=== PATIENT | female | born 1995 | race Two or more races ===

== ENCOUNTER 2016-12-24 13:18 | Inpatient (IN) | payer SELFPAY ==
[~2016-12-24] VITALS: Ht 160 cm; Wt 75.0 kg
[2016-12-24 15:22] LABS: BASOPHILS % (AUTO) 0.3 % (0.0-2.0); DIFF TOTAL % 100 %; EOSINOPHILS # (AUTO) 0.1 /CMM (0.0-0.7); EOSINOPHILS % (AUTO) 0.8 % (0.0-6.0); HEMATOCRIT 47 % (33-45); HEMOGLOBIN 15.3 g/dL (11.5-14.8); LYMPHOCYTES # (AUTO) 5.5 /CMM (0.8-4.8); LYMPHOCYTES % (AUTO) 61.5 % (20.0-44.0); MEAN CORPUSCULAR HEMOGLOBIN 31 PG (26.0-33.0); MEAN CORPUSCULAR HGB CONC 33 g/dl (31.0-36.0); MEAN CORPUSCULAR VOLUME 94 fL (82-100); MONOCYTES # (AUTO) 0.9 /CMM (0.1-1.30); MONOCYTES % (AUTO) 10.1 % (2.0-12.0); NEUTROPHILS # (AUTO) 2.5 /CMM (1.8-8.9); NEUTROPHILS % (AUTO) 27.3 % (43.0-81.0); RED BLOOD CELL COUNT(AUTO) 5.03 MIL/uL (4.0-5.2)
[2016-12-24 15:50] LABS: CALCIUM, SERUM 8.6 mg/dL (8.5-10.1); CREATININE 0.5 mg/dL (0.6-1.3); POTASSIUM 4.4 mmol/L (3.5-5.1)
[2016-12-24 15:56] LABS: ALBUMIN 3.2 g/dL (3.4-5.0); BILIRUBIN,DIRECT 0.1 mg/dL (0.0-0.2); BILIRUBIN,TOTAL 0.6 mg/dL (0.2-1.0); INDIRECT BILIRUBIN 0.5 mg/dL (0.0-1.1); TOTAL PROTEIN, SERUM 7.6 g/dL (6.4-8.2)
[2016-12-24 16:01] LABS: KETONES,URINE Negative (NEGATIVE); LEUKOCYTE ESTERASE ,URINE Trace (NEGATIVE)
[2016-12-24 16:03] LABS: ADD UA MICROSCOPIC YES
[2016-12-24 16:05] LABS: PREGNANCY TEST URINE QUAL NEGATIVE (NEGATIVE)
[2016-12-24 16:16] LABS: ADD URINE CULTURE NO; RBC,URINE 0-2 /HPF (0-2); WBC,URINE 0-2 /HPF (0-3)
[2016-12-24 16:34] LABS: EOSINOPHILS % (MANUAL) 1 % (0-4); LYMPHOCYTES % (MANUAL) 60 % (16-48); PLATELET ESTIMATE DECREASED; RBC MORPHOLOGY COMMENT NORMAL RBC MORPH
[2016-12-24 16:35] LABS: PLATELET COUNT (AUTO) 4 /CMM (150-450)
[2016-12-24 17:14] LABS: INR 0.94 (0.87-1.13); PROTHROMBIN TIME 9.9 SECS (9.5-12.7)
[2016-12-24] MEDS ORDERED: methylPREDNISolone SOD SUCC 125 MG/2ML VIAL IV ONE (17:30)
[2016-12-24] MEDS ORDERED: methylPREDNISolone SOD SUCC 125 MG/2ML VIAL ONE (17:39)
[2016-12-24 18:30] VITALS: BP 109/61
[2016-12-24] MEDS ORDERED: ONDANSETRON HCL/PF 4 MG/2 ML VIAL IVP PRN (18:30)
[2016-12-24] MEDS ORDERED: Z GUARD REMEDY 2 OZ OINT TP PRN (18:30)
[2016-12-24] MEDS ORDERED: MAG HYDROX/AL HYDROX/SIMETH 30 ML UDC PO PRN (18:30)
[2016-12-24] MEDS ORDERED: ACETAMINOPHEN 325 MG TABLET PO PRN (18:30)
[2016-12-24] MEDS ORDERED: MAGNESIUM HYDROXIDE 30 ML UDC PO PRN (18:30)
[2016-12-24] MEDS ORDERED: HYDROCODONE/APAP 5/325MG 1 EACH TABLET PO PRN (18:30)
[2016-12-24] MEDS ORDERED: ZOLPIDEM TARTRATE 5 MG TABLET PO PRN (18:30)
[2016-12-24] MEDS ORDERED: WATER FOR INJECTION STERILE IV SCH (19:00)
[2016-12-24] MEDS ORDERED: [UNRECOGNIZED DRUG - OTHER] IV SCH (19:00)
[2016-12-24 20:00] VITALS: BP 112/78
[2016-12-24 21:26] LABS: INR 0.94 (0.87-1.13); PROTHROMBIN TIME 10.2 SECS (9.5-12.7)
[2016-12-24 21:40] LABS: C-REACTIVE PROTEIN 1.1 mg/dL (0.0-0.9); THYROID STIMULATING HORMONE 0.94 uIU/mL (0.358-3.74)
[2016-12-25] VITALS: BP 111/69
[2016-12-25 04:00] VITALS: BP 114/65
[2016-12-25 06:58] VITALS: BP 113/60
[2016-12-25] MEDS ORDERED: PANTOPRAZOLE 40 MG TABLET.DR PO SCH (07:30)
[2016-12-25 08:25] LABS: BASOPHILS % (AUTO) 0.3 % (0.0-2.0); DIFF TOTAL % 100 %; HEMATOCRIT 40 % (33-45); HEMOGLOBIN 13.3 g/dL (11.5-14.8); LYMPHOCYTES # (AUTO) 4.1 /CMM (0.8-4.8); LYMPHOCYTES % (AUTO) 55.9 % (20.0-44.0); MEAN CORPUSCULAR HEMOGLOBIN 31 PG (26.0-33.0); MEAN CORPUSCULAR HGB CONC 34 g/dl (31.0-36.0); MEAN CORPUSCULAR VOLUME 93 fL (82-100); MONOCYTES # (AUTO) 0.5 /CMM (0.1-1.30); NEUTROPHILS # (AUTO) 2.7 /CMM (1.8-8.9); NEUTROPHILS % (AUTO) 36.8 % (43.0-81.0); RED BLOOD CELL COUNT(AUTO) 4.26 MIL/uL (4.0-5.2); WHITE BLOOD COUNT (AUTO) 7.3 K/uL (4.3-11.0)
[2016-12-25 08:35] LABS: PLATELET COUNT (AUTO) 4 /CMM (150-450)
[2016-12-25 08:50] LABS: INR 0.95 (0.87-1.13); PROTHROMBIN TIME 10.3 SECS (9.5-12.7)
[2016-12-25 08:52] LABS: ALBUMIN 2.9 g/dL (3.4-5.0); BILIRUBIN,TOTAL 0.5 mg/dL (0.2-1.0); CALCIUM, SERUM 8.9 mg/dL (8.5-10.1); CREATININE 0.6 mg/dL (0.6-1.3); PHOSPHORUS 3.8 mg/dL (2.5-4.9); POTASSIUM 3.9 mmol/L (3.5-5.1); TOTAL PROTEIN, SERUM 6.9 g/dL (6.4-8.2)
[2016-12-25] MEDS ORDERED: methylPREDNISolone SOD SUCC 125 MG/2ML VIAL IV SCH (09:00)
[2016-12-25 10:10] LABS: BAND % (MANUAL) 1 % (0.0-5.0); LYMPHOCYTES % (MANUAL) 57 % (16-48)
[2016-12-25 10:11] LABS: ANISOCYTOSIS 1+; PLATELET ESTIMATE DECREASED
[2016-12-25 21:16] LABS: HIV-1 p24 ANTIGEN NON REACTIVE (NONREACTIVE); HIV-1/2 ANTIBODY NON REACTIVE (NONREACTIVE)
== END 2016-12-25 12:24 | disposition left against medical advice (07) | DRG 813 ==
LOC: ER 13:23 → TELE 18:19 → MED 12-25 10:47
PROVIDERS: ADMIT Internal Medicine; ATTEND Internal Medicine
DX: D69.3 Immune thrombocytopenic purpura (principal); I10 Essential (primary) hypertension; D72.820 Lymphocytosis (symptomatic); R16.1 Splenomegaly, not elsewhere classified; R04.0 Epistaxis
CPT/HCPCS: 36415; 71010-TC; 76700-TC; 80048-TC; 80053-TC; 80076-TC; 81000-TC; 82746; 82784; 83615-TC; 83735-TC; 84100-TC; 84439-TC; 84443-TC; 84703-TC; 85025-TC; 85385-TC; 85610-TC; 85730-TC; 86140-TC; 86431-TC; 86706; 86803; 86850-TC; 86880-TC; 86901; 87081-TC; 87340; A4606; J2405; J2930; Z7610

== ENCOUNTER 2018-06-03 16:08 | Emergency (ER) | payer MEDICAID ==
[~2018-06-03] VITALS: Ht 160 cm; Wt 77.1 kg
[2018-06-03 16:14] VITALS: BP 142/97
== END 2018-06-03 17:29 | disposition home or self-care (01) ==
LOC: ER 16:12
DX: L72.0 Epidermal cyst (principal)
CPT/HCPCS: 99281; A4606; Z7610; Z7502